=== PATIENT | male | born 1960 | race Two or more races ===

== ENCOUNTER → 2020-01-05 08:00 | Outpatient (CLI) | payer OTHER | END | disposition home or self-care (01) | LOC: LAB 08:00 → ADM 13:15 → EDSTATUS 01-11 13:15 → AMB-ENDOS 01-11 13:15 | PROVIDERS: ATTEND Surgery | DX: U07.1 COVID-19 (principal); K63.3 Ulcer of intestine; K63.5 Polyp of colon; D37.4 Neoplasm of uncertain behavior of colon; Z01.812 Encounter for preprocedural laboratory examination ==

== ENCOUNTER 2020-03-28 06:13 | Day surgery (SDC) | payer OTHER | END 2020-03-28 10:55 | disposition home or self-care (01) | LOC: AMB-ENDOS 06:13 → CIR.AMB 12:30 | PROVIDERS: ATTEND Surgery | DX: D12.0 Benign neoplasm of cecum (principal); D12.3 Benign neoplasm of transverse colon; K64.8 Other hemorrhoids; Z20.828 Contact with and (suspected) exposure to other viral communicable diseases ==